=== PATIENT | female | born 1990 | race Caucasian/White ===

== ENCOUNTER 2016-12-25 08:27 | Day surgery (SDC) | payer OTHER ==
[2016-12-25] VITALS (11 sets, daily range): BP systolic 113–156; BP diastolic 65–89; PULSE 62–94; RESP 10–24; Ht 167.6 cm; Wt 69.9 kg
[~2016-12-25] VITALS: Ht 167.6 cm; Wt 69.9 kg
[~2016-12-25 08:27] MED LIST: BUPIVACAINE 0.5%/EPI (SDV) 30 ML INJ INJ ONE; FERR-31 PO; KETOROLAC 30 MG INJ ONE; LIDOCAINE 4% CR ONE; PREN-39 PO; SEVOFLURANE 15 MIN ONE; SUCCINYLCHOLINE CHLORIDE 100 MG/5 ML SYG IV ONE
[2016-12-25] MEDS ORDERED: BUPIVACAINE 0.5%/EPI (SDV) 30 ML INJ ONE (09:20)
[2016-12-25 09:37] LABS: ADD SCAN DIFF NO
[2016-12-25 09:42] LABS: BASOPHIL # 0.1 10^3/ul (0.0-0.1); BASOPHILS % 0.9 % (0.0-2.0); EOSINOPHILS # 0.5 10^3/ul (0.0-0.5); EOSINOPHILS % 4.6 % (0.0-7.0); HEMATOCRIT 41.2 % (37.0-47.0); HEMOGLOBIN 13.7 g/dl (12.0-16.0); LYMPHOCYTES % 29.7 % (15.0-51.0); MEAN CORPUSCULAR HEMOGLOBIN 31.2 pg (29.0-33.0); MEAN CORPUSCULAR HGB CONC 33.3 g/dl (32.0-37.0); MEAN CORPUSCULAR VOLUME 93.8 fl (82.0-101.0); MEAN PLATELET VOLUME 11.1 fl (7.4-10.4); MONOCYTE # 0.6 10^3/ul (0.3-0.9); NEUTROPHIL # 5.9 10^3/ul (1.6-7.5); NEUTROPHILS % 58.7 % (39.0-77.0); PLATELET COUNT 288 10^3/UL (140-415); RED BLOOD COUNT 4.39 10^6/ul (4.20-5.40); WHITE BLOOD COUNT 10.1 10^3/ul (4.8-10.8)
[2016-12-25] MEDS ORDERED: PROPOFOL 20 ML ONE (10:56)
[2016-12-25] MEDS ORDERED: LIDOCAINE 2% (SDV) 5 ML INJ ONE (10:56)
[2016-12-25] MEDS ORDERED: GLYCOPYRROLATE 0.4 MG INJ ONE (10:56)
[2016-12-25] MEDS ORDERED: ROCURONIUM 50 MG INJ ONE (10:56)
[2016-12-25] MEDS ORDERED: MIDAZOLAM 1 MG/ML 2 ML INJ ONE (10:56)
[2016-12-25] MEDS ORDERED: NEOSTIGMINE 3 MG/3 ML SYRINGE ONE (10:56)
[2016-12-25] MEDS ORDERED: FENTAnyl 50 MCG/ML VIAL ONE ×2 (10:57→13:36)
[2016-12-25] MEDS ORDERED: ONDANSETRON 4 MG INJ ONE (10:57)
[2016-12-25] MEDS ORDERED: CEFAZOLIN 1 GM INJ ONE (10:58)
--- NOTE | 2016-12-25 13:40 | PREOPHP ---
DATE OF ADMISSION: 12/25/2016 HISTORY OF PRESENT ILLNESS: A 26-year-old female 3, para 2, AB 1, last menstrual period , is admitted for voluntary sterilization. PAST MEDICAL HISTORY: Unremarkable. PAST SURGICAL HISTORY: Unremarkable. FAMILY HISTORY: Hypertension. ALLERGIES: NO KNOWN ALLERGIES. PHYSICAL EXAMINATION: VITAL SIGNS: Patient is afebrile. Vital signs stable. HEAD, NECK AND CHEST: Within normal limits. ABDOMEN: Soft, nontender and nondistended. PELVIC: Normal. EXTREMITIES: Within normal limits. NEUROLOGIC: Within normal limits. IMPRESSION: Voluntary sterilization. PLAN: Minilaparotomy, bilateral tubal ligation. Risks, benefits and alternatives of the procedure were explained to patient. Patient has been counseled about all of her contraceptive options. I ex plained to patient that with bilateral tubal ligation there is a chance of failure resulting in ecto pic and/or intrauterine . After counseling, the patient said she understood and gave informed consent for the procedure. Dictated By: TALON SNOWDEN/AROLDO Conf#: [id number] DID#: [id number]
--- NOTE | 2016-12-25 13:42 | OPR ---
DATE OF OPERATION: 12/25/2016 PREOPERATIVE DIAGNOSIS: Voluntary sterilization. POSTOPERATIVE DIAGNOSIS: Voluntary sterilization. OPERATION PERFORMED: Minilaparotomy, bilateral tubal ligation. ANESTHESIA: General. ANESTHESIOLOGIST: Sumit Harper. PROCEDURE: The patient was taken to the operating room and placed on the operating table. After ad equate general anesthesia was given, the patient was placed in supine position. The area was prepar ed and draped in the usual sterile fashion. Using a scalpel, Pfannenstiel incision was made about 2 fingerbreadths above the symphysis pubis. T he incision was carried to the fascia. The fascia was incised and extended bilaterally with Harrington sc issors. Two Kochers were used to separate the fascia from the muscle. The muscle was dissected ruby n to peritoneum. The peritoneum was secured with 2 Kellys and incised with Metzenbaum scissors. Up on entering the peritoneal cavity, the right fallopian tube was grasped with a Hallett clamp. Using 0 plain suture ligature, a 5 cm segment of the right fallopian tube was doubly ligated. Using [place] enbaum scissors, a portion of the right fallopian tube above the ligated area was excised and sent t o pathology. Same procedure was repeated on the left fallopian tube. After assuring hemostasis, th e peritoneum was closed with 0 chromic. The fascia was closed with 0 Vicryl, subcutaneous tissue wa s reapproximated with 2-0 chromic. The skin was closed with kaylyn. ESTIMATED BLOOD LOSS: Minimal. COMPLICATIONS: None. COUNTS: All counts were correct. Dictated By: TALON SNOWDEN/AROLDO Conf#: [id number] DID#: [id number]
[2016-12-25] MEDS: FENTAnyl 50 MCG/ML VIAL IV PRN ×2 (13:57→14:10)
[2016-12-25] MEDS ORDERED: OXYCODONE/ACETAMINOPHEN (5/325) TAB PO PRN ×3 (14:00)
[2016-12-25] MEDS ORDERED: morphine (1 MG/ML) 10ML SYRINGE IV PRN ×3 (14:00)
[2016-12-25] MEDS ORDERED: EPHEDrine SULFATE 50 MG/5 ML SYG IV PRN (14:00)
[2016-12-25] MEDS ORDERED: MEPERIDINE 25 MG INJ IV PRN (14:00)
[2016-12-25] MEDS ORDERED: KETOROLAC 30 MG INJ IV PRN (14:00)
[2016-12-25] MEDS ORDERED: ONDANSETRON 4 MG INJ IV PRN ×2 (14:00)
[2016-12-25] MEDS ORDERED: DIPHENHYDRAMINE 50 MG INJ IV PRN (14:00)
[2016-12-25] MEDS ORDERED: MIDAZOLAM 1 MG/ML 2 ML INJ IV PRN (14:00)
[2016-12-25] MEDS ORDERED: ATROPINE 1 MG/10 ML SYRINGE IV PRN (14:00)
[2016-12-25] MEDS ORDERED: HYDROmorphONE (0.2 MG/ML) 10ML SYG IV PRN ×3 (14:00)
[2016-12-25] MEDS ORDERED: hydrALAzine 20 MG INJ IV PRN (14:00)
[2016-12-25] MEDS ORDERED: FENTAnyl 50 MCG/ML VIAL IV PRN (14:00)
[2016-12-25] MEDS ORDERED: LABETALOL HCL 20MG INJ IV PRN (14:00)
[2016-12-25] MEDS ORDERED: morphine 2 MG INJ IV PRN (14:00)
== END 2016-12-25 16:55 | disposition home or self-care (01) ==
LOC: SDS 08:27
PROVIDERS: ATTEND Obstetrics & Gynecology
DX: Z30.2 Encounter for sterilization (principal)
CPT/HCPCS: 58600; 84703; 85025; 86850; 86900; 86901; 88302; J0330; J0690; J1885; J2250; J2405; J2710; J3010; Z7512; Z7610

== ENCOUNTER 2016-12-27 15:38 | Emergency (ER) | payer OTHER ==
[~2016-12-27] VITALS: Ht 91.4 cm; Wt 71.5 kg
[~2016-12-27 15:38] MED LIST changes: -BUPIVACAINE 0.5%/EPI (SDV) 30 ML INJ INJ ONE; -KETOROLAC 30 MG INJ ONE; -LIDOCAINE 4% CR ONE; -SEVOFLURANE 15 MIN ONE; -SUCCINYLCHOLINE CHLORIDE 100 MG/5 ML SYG IV ONE
[2016-12-27 15:40] VITALS: Ht 91.4 cm; Wt 71.5 kg
[2016-12-27] MEDS ORDERED: morphine 4 MG/ML VIAL IV STA (15:56)
[2016-12-27] MEDS ORDERED: ONDANSETRON 4 MG INJ IV STA (15:56)
[2016-12-27 16:17] LABS: ADD SCAN DIFF NO
[2016-12-27 16:18] LABS: BASOPHIL # 0.1 10^3/ul (0.0-0.1); BASOPHILS % 0.5 % (0.0-2.0); EOSINOPHILS # 0.3 10^3/ul (0.0-0.5); EOSINOPHILS % 2.3 % (0.0-7.0); HEMOGLOBIN 14.3 g/dl (12.0-16.0); LYMPHOCYTES # 2.9 10^3/ul (0.8-2.9); LYMPHOCYTES % 19.7 % (15.0-51.0); MEAN CORPUSCULAR HEMOGLOBIN 31.8 pg (29.0-33.0); MEAN CORPUSCULAR HGB CONC 33.3 g/dl (32.0-37.0); MEAN CORPUSCULAR VOLUME 95.6 fl (82.0-101.0); MEAN PLATELET VOLUME 10.9 fl (7.4-10.4); MONOCYTE # 1.2 10^3/ul (0.3-0.9); MONOCYTES % 8.1 % (0.0-11.0); NEUTROPHIL # 10.2 10^3/ul (1.6-7.5); NEUTROPHILS % 69.1 % (39.0-77.0); PLATELET COUNT 276 10^3/UL (140-415); RED CELL DISTRIBUTION WIDTH 12.4 % (11.5-14.5); WHITE BLOOD COUNT 14.8 10^3/ul (4.8-10.8)
[2016-12-27 16:21] LABS: URINE BLOOD (Dip) POC Trace-intact (NEGATIVE)
[2016-12-27 16:32] LABS: INR 0.96; PARTIAL THROMBOPLASTIN TIME 28.6 Sec (25.0-35.0); PROTIME 12.8 Sec (12.2-14.2)
[2016-12-27 16:33] LABS: ALANINE AMINOTRANSFERASE 78 IU/L (13-69); ALBUMIN 4.2 g/dl (3.3-4.9); ALKALINE PHOSPHATASE 85 IU/L (42-121); ANION GAP 10 (8-16); ASPARTATE AMINO TRANSFERASE 88 IU/L (15-46); BILIRUBIN,INDIRECT 0.1 mg/dl (0-1.1); BILIRUBIN,TOTAL 0.1 mg/dl (0.2-1.3); BLOOD UREA NITROGEN 10 mg/dl (7-20); CALCIUM 8.9 mg/dl (8.4-10.2); CARBON DIOXIDE 27 mmol/L (21-31); CHLORIDE 104 mmol/L (97-110); CREATININE 0.74 mg/dl (0.44-1.00); GLUCOSE 84 mg/dl (70-220); POTASSIUM 4.2 mmol/L (3.5-5.1); SODIUM 137 mmol/L (135-144); TOTAL PROTEIN 7.7 g/dl (6.1-8.1)
[2016-12-27 16:57] LABS: TROPONIN-I < 0.012 ng/ml (0.00-0.12)
--- NOTE | 2016-12-27 17:51 | RADRPT ---
PROCEDURE: CT Pulmonary Angiogram. CLINICAL INDICATION: Chest pain and shortness of breath. History of tubal ligation 1 week ago. TECHNIQUE: CT pulmonary angiogram and a CT scan of the chest with contrast was performed. The pat ient was scanned following the uncomplicated intravenous administration of 110 ml of Omnipaque-350 i ntravenous contrast. 2-D coronal reformatted images were obtained from the axial source images. In addition, 3-D post processing was performed. Total exam DLP is 392.98 mGy-cm. CTDIvol is 25.35 mG y. One or more of the following dose reduction techniques were used: Automated exposure control, ad justment of the mA and/or kV according to patient size, use of iterative reconstruction technique. COMPARISON: None available. FINDINGS: The pulmonary arteries are normal with no filling defect or lack of enhancement to suggest pulmonary artery embolism. The lungs are clear. There is no pulmonary airspace or interstitial disease. There is no pulmonary nodule or mass lesion. There is no pneumothorax. There is no mediastinal or hilar lymphadenopathy or mass. There is no pleural effusion. There is no pericardial effusion. The thoracic aorta is normal with no aneurysm or dissection. Images through the upper abdomen demonstrate normal visualized portions of the liver, spleen, and ad renals. There is a small amount of free air under the diaphragm. The osseous structures are normal with no fracture or lytic lesion. IMPRESSION: 1. Normal CT pulmonary angiogram with no evidence of pulmonary artery embolism. 2. Normal CT scan of the chest. 3. Small amount of free air under the diaphragm, likely related to the recent surgery. Clinical co rrelation advised. RPTAT: QQ .Jaron Bailey MD, Date Time Electronically viewed and signed by .Jaron Bailey MD, on 12/27/2016 17:51 .R/
[2016-12-27] MEDS ORDERED: DICLOFENAC SODIUM 37.5 MG/ML VIAL IV STA (17:56)
[2016-12-27] MEDS ORDERED: IBUP-1542 PO (18:22)
[2016-12-27] MEDS ORDERED: HYDR-906 PO (18:22)
--- NOTE | 2016-12-27 18:29 | ERD ---
ER Documentation Chief Complaint Date/Time DATE: 12/27/16 TIME: 18:27 Chief Complaint TUBAL LIGATION LAST SATURDAY, CWP AND SOB ONSET YESTERDAY HPI 26-year-old female complains of anterior chest wall pain and sensation of shortness of breath since yesterday. It is intermittent. It is worse with trying to take a deep breath and movement. She did have a tubal ligation approximately 1 week ago. She denies any fevers, hemoptysis, calf swelling in her abdominal pain is stable since her surgery and improving. She denies any recent URIs or specific inciting events. ROS All systems reviewed and are negative except as per history of present illness. Medications Home Meds Active Scripts Hydrocodone/Acetaminophen ([place] 5-325 Tablet) 1 Each Tablet, 1 TAB PO Q6H Y for PAIN, #14 TAB Prov:ADRIEN ZACARIAS MD 12/27/16 Ibuprofen* (Motrin*) 600 Mg Tab, 600 MG PO Q6, #20 TAB Prov:ADRIEN ZACARIAS MD 12/27/16 Discontinued Reported Medications Ferrous Sulfate (Iron Supplement) 1 Tab Tablet, 1 TAB PO DAILY 09/19/14 Vits W-Ca,Fe,Fa(<1MG) ( Vitamins) 1 Tab Tablet, 1 TAB PO DAILY 02/21/13 Allergies Allergies: Coded Allergies: No Known Allergy (Unverified , 12/25/16) PMhx/Soc Medical and Surgical Hx: pt denies Medical Hx History of Surgery: Yes (sx on 12/25 tubal ligation ) Anesthesia Reaction: No Hx Neurological Disorder: No Hx Respiratory Disorders: No Hx Cardiac Disorders: No Hx Psychiatric Problems: No Hx Miscellaneous Medical Probl: No Hx Alcohol Use: No Hx Substance Use: No Hx Tobacco Use: No Smoking Status: Never smoker Physical Exam Vitals Vital Signs Date Time Temp Pulse Resp B/P Pulse Ox O2 Delivery O2 Flow Rate FiO2 12/27/16 15:40 98.0 83 20 139/77 99 Physical Exam Const: [] Alert, uncomfortable due to chest wall pain. Head: Atraumatic Eyes: Normal Conjunctiva ENT: Normal External Ears, Nose and Mouth. Neck: Full range of motion..~ No meningismus. Resp: Clear to auscultation bilaterally Cardio: Regular rate and rhythm, no murmurs Abd: Soft, non tender, non distended. Normal bowel sounds Skin: No petechiae or rashes Back: No midline or flank tenderness Ext: No cyanosis, or edema Neur: Awake and alert Psych: Normal Mood and Affect Result Diagram: 12/27/16 1610 12/27/16 1610 Results 24 hrs Laboratory Tests Test 12/27/16 16:10 12/27/16 16:21 White Blood Count 14.810^3/ul Red Blood Count 4.5010^6/ul Hemoglobin 14.3g/dl Hematocrit 43.0% Mean Corpuscular Volume 95.6fl Mean Corpuscular Hemoglobin 31.8pg Mean Corpuscular Hemoglobin Concent 33.3g/dl Red Cell Distribution Width 12.4% Platelet Count 63317^3/UL Mean Platelet Volume 10.9fl Neutrophils % 69.1% Lymphocytes % 19.7% Monocytes % 8.1% Eosinophils % 2.3% Basophils % 0.5% Nucleated Red Blood Cells % 0.0/100WBC Neutrophils # 10.210^3/ul Lymphocytes # 2.910^3/ul Monocytes # 1.210^3/ul Eosinophils # 0.310^3/ul Basophils # 0.110^3/ul Nucleated Red Blood Cells # 0.010^3/ul Prothrombin Time 12.8Sec Prothrombin Time Ratio 1.0 INR International Normalized Ratio 0.96 Activated Partial Thromboplast Time 28.6Sec Sodium Level 137mmol/L Potassium Level 4.2mmol/L Chloride Level 104mmol/L Carbon Dioxide Level 27mmol/L Anion Gap 10 Blood Urea Nitrogen 10mg/dl Creatinine 0.74mg/dl Glucose Level 84mg/dl Calcium Level 8.9mg/dl Total Bilirubin 0.1mg/dl Direct Bilirubin 0.00mg/dl Indirect Bilirubin 0.1mg/dl Aspartate Amino Transf (AST/SGOT) 88IU/L Alanine Aminotransferase (ALT/SGPT) 78IU/L Alkaline Phosphatase 85IU/L Troponin I < 0.012ng/ml Total Protein 7.7g/dl Albumin 4.2g/dl Globulin 3.50g/dl Albumin/Globulin Ratio 1.20 Bedside Urine pH (LAB) 6.0 Bedside Urine Protein (LAB) Trace Bedside Urine Glucose (UA) Negative Bedside Urine Ketones (LAB) Negative Bedside Urine Blood Trace-intact Bedside Urine Nitrite (LAB) Negative Bedside Urine Leukocyte Esterase (L Negative Current Medications Medications (Trade) Dose Ordered Sig/Bre Route PRN Reason Start Time Stop Time Status Last Admin Dose Admin Morphine Sulfate (morphine) 4 mg ONCE STAT IV 12/27/16 15:56 12/27/16 15:59 DC 12/27/16 16:14 Ondansetron HCl (Zofran Inj) 4 mg ONCE STAT IV 12/27/16 15:56 12/27/16 15:59 DC 12/27/16 16:14 Diclofenac Sodium (Dyloject) 37.5 mg ONCE STAT IV 12/27/16 17:56 12/27/16 17:58 DC 12/27/16 18:03 Dexamethasone (Decadron) 6 mg ONCE ONCE IV 12/27/16 18:30 12/27/16 18:31 Procedures/MDM CBC shows white blood cell count 14.8. CMP is normal. EKG: Rate/Rhythm: [Normal Sinus Rhythm] rate equals 80 QRS, ST, T-waves: [No changes consistent w/ acute ischemia] Impression: [No evidence of ischemia or arrhythmia]. Impression-normal EKG Given the degree of pain of uncertain etiology CT angios performed which is read as normal by the radiologist. Patient has chest wall pain of uncertain etiology without evidence of pulmonary embolism, acute coronary syndrome, aortic disease pneumonia, hemothorax, pneumothorax. She may have pleurisy or severe costochondritis. She was given morphine 4 mg IV, Zofran 4 mg IV and inject IV. Patient was given 6 mg Decadron IV as well. Patient was discharged home with a prescription ibuprofen [place] and further observation. Patient return for hemoptysis, fevers, worsening symptoms or new worsening symptoms with primary doctor this week. The patient was stable with no new complaints during the ER course. Clinically, there is no current evidence to suggest meningitis, sepsis, acute abdomen, pneumonia, acute coronary syndrome, pulmonary embolism, or any other emergent condition appearing to require further evaluation or hospitalization. The patient should certainly return for any new or worsening symptoms per the aftercare instructions. They should otherwise follow-up with her primary care doctor for reevaluation this week. Departure Diagnosis: Primary Impression: Chest wall pain Condition: Stable Patient Instructions: Pleurisy, Chest Wall Pain, Costochondritis Additional Instructions: All examinations normal today. Recheck with primary doctor this week or for new or worsening symptoms-fevers, blood, new symptoms. ADRIEN ZACARIAS MD Dec 27, 2016 18:29
[2016-12-27] MEDS ORDERED: DEXAMETHASONE 10 MG/ML 1 ML INJ IV ONE (18:30)
[2016-12-27 18:41] VITALS: BP 140/77; PULSE 72; RESP 18; TEMP 98.1
== END 2016-12-27 18:42 | disposition home or self-care (01) ==
LOC: FTE 15:38
DX: R07.89 Other chest pain (principal)
CPT/HCPCS: 71275; 80053; 81003; 84484; 85025; 85610; 85730; 93005; J1100; J2270; J2405; Z7610; 36415; 96374; 96375